=== PATIENT | male | born 1980 | race Caucasian/White ===

== ENCOUNTER 2023-06-20 18:10 | Emergency (ER) | payer BC ==
[2023-06-20 18:36] VITALS: TEMP 99.6
--- NOTE | 2023-06-20 20:07 | ERPHSYRPT ---
- History of Present Illness Time Seen by Provider: 06/20/23 19:16 Source: patient Exam Limitations: no limitations Patient Subjective Stated Complaint: Pt has been sick for 1 week with a sore throat, cough, drainage, coughing up phlem, headache, eye pain, fever, pt has we nt to [facility] in [place] on Friday and was given Amoxil and and had negative strep test and then the pt went to [facility] here at the hospital and was neg for strep/flu/covid and RSV Triage Nursing Assessment: Pt brought to the ER by his sister, hypertensive, rat es overall pain as 8/10, throat is swollen and red with no visible pustules, pt took tylenol prior to coming to the ER and stated that his temp was 102.7 and it is now 99.6, pulses normal, skin n/w/d, states that he has pain behind his eyes, headache, sputum is green in color per pt, pt was placed on antibiotics but they don't seem to be helping Physician History: Pt states for the past week he has had fatigue, chills, fever starting at 99.7 degrees up to 102.7 degrees today, sore throat for the past 5 days, frontal headache for the past 3 days and cough productive of green phlegm for the past 3 days. Allergies/Adverse Reactions: No Known Drug Allergies Allergy (Verified 06/20/23 18:37) Home Medications: Cholestyramine (with Sugar) [Cholestyramine Packet] 4 gm PO DAILY 06/20/23 [History] Hx Tetanus, Diphtheria Vaccination/Date Given: Yes Hx Influenza Vaccination/Date Given: No Hx Pneumococcal Vaccination/Date Given: No Travel Risk - International Travel Have you traveled outside of the country in past 3 weeks: No - Coronavirus Screening Are you exhibiting any of the following symptoms?: No Close contact with a COVID-19 positive Pt in past 14-21 Days: No - Vaccine Status Have you recieved a Covid-19 vaccination: Yes Medical Records Director: Unknown - Vaccination Dates Date of 2cond Vaccination (if applicable): didn't get Dates if Unknown: 2020 - Review of Systems Constitutional: Fever, Chills, Fatigue Ears, Nose, & Throat: Throat Pain Respiratory: Cough Abdominal/Gastrointestinal: No Abdominal Pain Neurological: Headache - Past Medical History Pertinent Past Medical History: Yes Neurological History: No Pertinent History ENT History: No Pertinent History Cardiac History: Hypertension, Other Respiratory History: No Pertinent History Endocrine Medical History: No Pertinent History Musculoskeletal History: No Pertinent History GI Medical History: No Pertinent History History: No Pertinent History Psycho-Social History: No Pertinent History 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 - Past Surgical History Past Surgical History: Yes Neuro Surgical History: No Pertinent History Cardiac: Other Respiratory: No Pertinent History Gastrointestinal: Cholecystectomy Genitourinary: No Pertinent History Musculoskeletal: No Pertinent History Male Surgical History: No Pertinent History Other Surgical History: lower back pain - Social History Smoking Status: Never smoker Exposure to second hand smoke: Yes Drug Use: none Patient Lives Alone: No - Nursing Vital Signs Nursing Vital Signs: Initial Vital Signs Temperature 99.6 F 06/20/23 18:22 Pulse Rate 99 H 06/20/23 18:22 Blood Pressure 152/74 06/20/23 18:22 O2 Sat by Pulse Oximetry 97 06/20/23 18:22 Pain Scale Pain Intensity 8 - Physical Exam General Appearance: alert Eye Exam: PERRL/EOMI Ears, Nose, Throat Exam: TM abnormal (R) (mildly erythematous), TM abnormal (L) (mildly erythematous), pharyngeal erythema Neck Exam: lymphadenopathy (anterior cervical chain with mild tenderness) Respiratory Exam: normal breath sounds Cardiovascular Exam: normal heart sounds Gastrointestinal/Abdomen Exam: normal bowel sounds Extremity Exam: No pedal edema Neurologic Exam: alert, cooperative Skin Exam: warm, dry SpO2 Interpretation: normal SpO2: 97 O2 Delivery: Room Air - Course Nursing assessment & vital signs reviewed: Yes - Radiology Exams Chest X-ray Interpretation: Teleradiologist Report ( A suggestion of slightly prominent bernie. No major collapse or consolidation. No active lung lesioin noted at the present study. ) - CT Exams Soft Tissue Neck CT Interpretation: Tele-radiologist Report (An enlarged left jugulo digastric node could be infective/inflammatory. Recommend ultrasound/CT followup. Multiple sub centimetric submandibular, jugular and posterior cervical nodes.) Ordered Tests: Active Orders 24 hr Category Date Time Status IV Insertion STAT Care 06/20/23 20:09 Active CHEST 2 VIEWS (PA AND LAT) Stat Exams 06/20/23 20:10 Completed NECK WITH CONTRAST [CT] Stat Exams 06/20/23 20:08 Completed CBC W DIFF Stat Lab 06/20/23 20:30 Completed CMP Stat Lab 06/20/23 20:30 Completed MONO SCREEN Stat Lab 06/20/23 20:30 Completed UA W/RFX UR CULTURE Stat Lab 06/20/23 20:09 Ordered Medication Summary Generic Name Dose Route Start Last Admin Trade Name Jim PRN Reason Stop Dose Admin Sodium Chloride 1,000 mls @ 100 mls/hr 06/20/23 20:45 06/20/23 20:50 Sodium Chloride 0.9% 1000 Ml IV 07/20/23 20:44 100 mls/hr .Q10H GANGA Administration Discontinued Medications Generic Name Dose Route Start Last Admin Trade Name Jim PRN Reason Stop Dose Admin Sodium Chloride 100 mls @ 100 mls/hr 06/20/23 20:09 06/20/23 20:44 Sodium Chloride 0.9% IV 06/20/23 21:08 Not Given .Q1H ONE Ketorolac Tromethamine 30 mg 06/20/23 20:11 06/20/23 20:52 Ketorolac Tromethamine 30 Mg/Ml Inj IV 06/20/23 20:12 30 mg STAT ONE Administration Ketorolac Tromethamine Confirm 06/20/23 20:45 Ketorolac Tromethamine 30 Mg/Ml Inj Administered 06/20/23 20:46 Dose 30 mg .ROUTE .STK-MED ONE Lab/Rad Data: Laboratory Result Diagrams 06/20/23 20:30 06/20/23 20:30 Laboratory Results 06/20/23 06/20/23 06/20/23 Range/Units 20:30 20:30 20:30 WBC (4.0-10.5) x10^3/uL RBC (4.1-5.6) x10^6/uL Hgb (12.5-18.0) g/dL Hct (42-50) % MCV (78-100) fL MCH (26-32) pg MCHC (32-36) g/dL RDW (11.5-14.0) % Plt Count (150-450) x10^3/uL MPV (7.5-11.0) fL Gran % (36.0-66.0) % Immature Gran % (Auto) (0.00-0.4) % Nucleat RBC Rel Count (0.00-0.1) % Eos # (Auto) (0-0.5) x10^3/uL Immature Gran # (Auto) (0.00-0.03) x10^3u/L Absolute Lymphs (auto) (1.0-4.6) x10^3/uL Absolute Monos (auto) (0.0-1.3) x10^3/uL Absolute Nucleated RBC (0.00-0.01) x10^3u/L Lymphocytes % (24.0-44.0) % Monocytes % (0.0-12.0) % Eosinophils % (0.00-5.0) % Basophils % (0.0-0.4) % Absolute Granulocytes (1.4-6.9) x10^3/uL Basophils # (0-0.4) x10^3/uL Sodium (137-145) mmol/L Potassium (3.5-5.1) mmol/L Chloride (98-107) mmol/L Carbon Dioxide (22-30) mmol/L Anion Gap (5-15) MEQ/L BUN (9-20) mg/dL Creatinine (0.66-1.25) mg/dL Estimated GFR ML/MIN Glucose (74-106) mg/dL Calcium (8.4-10.2) mg/dL Total Bilirubin (0.2-1.3) mg/dL AST (17-59) U/L ALT (0-50) U/L Alkaline Phosphatase (38-126) U/L Serum Total Protein (6.3-8.2) g/dL Albumin (3.5-5.0) g/dL Monoscreen NEGATIVE (NEGATIVE) Influenza Type A Ag NEGATIVE (NEGATIVE) Influenza Type B Ag NEGATIVE (NEGATIVE) RSV (PCR) POSITIVE (NEGATIVE) SARS-CoV-2 (PCR) NEGATIVE (NEGATIVE) Group A Strep Antibody NOT DETECTED (NEGATIVE) 06/20/23 06/20/23 Range/Units 20:30 20:30 WBC 5.1 (4.0-10.5) x10^3/uL RBC 5.05 (4.1-5.6) x10^6/uL Hgb 14.7 (12.5-18.0) g/dL Hct 45.7 (42-50) % MCV 90.5 (78-100) fL MCH 29.1 (26-32) pg MCHC 32.2 (32-36) g/dL RDW 12.8 (11.5-14.0) % Plt Count 133 L (150-450) x10^3/uL MPV 10.4 (7.5-11.0) fL Gran % 71.2 H (36.0-66.0) % Immature Gran % (Auto) 0.2 (0.00-0.4) % Nucleat RBC Rel Count 0.0 (0.00-0.1) % Eos # (Auto) 0.04 (0-0.5) x10^3/uL Immature Gran # (Auto) 0.01 (0.00-0.03) x10^3u/L Absolute Lymphs (auto) 0.99 L (1.0-4.6) x10^3/uL Absolute Monos (auto) 0.42 (0.0-1.3) x10^3/uL Absolute Nucleated RBC 0.00 (0.00-0.01) x10^3u/L Lymphocytes % 19.4 L (24.0-44.0) % Monocytes % 8.2 (0.0-12.0) % Eosinophils % 0.8 (0.00-5.0) % Basophils % 0.2 (0.0-0.4) % Absolute Granulocytes 3.64 (1.4-6.9) x10^3/uL Basophils # 0.01 (0-0.4) x10^3/uL Sodium 139 (137-145) mmol/L Potassium 3.9 (3.5-5.1) mmol/L Chloride 101 (98-107) mmol/L Carbon Dioxide 27 (22-30) mmol/L Anion Gap 15.4 H (5-15) MEQ/L BUN 20 (9-20) mg/dL Creatinine 1.17 (0.66-1.25) mg/dL Estimated GFR 79.8 ML/MIN Glucose 109 H (74-106) mg/dL Calcium 9.8 (8.4-10.2) mg/dL Total Bilirubin 0.60 (0.2-1.3) mg/dL AST 31 (17-59) U/L ALT 23 (0-50) U/L Alkaline Phosphatase 54 (38-126) U/L Serum Total Protein 8.0 (6.3-8.2) g/dL Albumin 4.6 (3.5-5.0) g/dL Monoscreen (NEGATIVE) Influenza Type A Ag (NEGATIVE) Influenza Type B Ag (NEGATIVE) RSV (PCR) (NEGATIVE) SARS-CoV-2 (PCR) (NEGATIVE) Group A Strep Antibody (NEGATIVE) - Progress Progress: unchanged Air Movement: fair Blood Culture(s) Obtained: No Antibiotics given: No Counseled pt/family regarding: lab results, diagnosis, rad results Medical Desision Making - Diagnostic Testing Diagnostic test were ordered, analyzed, and reviewed by me: Yes Radiological Interpretation: Teleradiologist Report - Departure Departure Disposition: Home Clinical Impression: RSV infection, Bilateral otitis media, Fever Condition: Stable Critical Care Time: No Referrals: BHARGAV LANCASTER [Primary Care Provider] - Follow up/PCP as directed Instructions: Sore Throat, Adult (DC), Respiratory Syncytial Virus, Adult (DC) Additional Instructions: Follow up with private doctor tomorrow. Take tylenol &/or ibuprofen as needed for pain/fever. Continue augmentin for ear infections.
[2023-06-20] MEDS ORDERED: Sodium Chloride 0.9% 100 ML IV ONE (20:09)
[2023-06-20] MEDS ORDERED: TORAdol 30 mg Injection IV ONE (20:11)
[2023-06-20 20:35] LABS: Absolute Neutrophil Ct (ANC) 3.64 x10^3/uL (1.4-6.9); BASOPHIL % 0.2 % (0.0-0.4); Basophil (Absolute #) 0.01 x10^3/uL (0-0.4); Eosinophil % 0.8 % (0.00-5.0); Eosinophil (Absolute #) 0.04 x10^3/uL (0-0.5); Hematocrit 45.7 % (42-50); Hemoglobin 14.7 g/dL (12.5-18.0); IMMATURE GRAN # 0.01 x10^3u/L (0.00-0.03); IMMATURE GRAN % 0.2 % (0.00-0.4); Lymphocyte (Absolute #) 0.99 x10^3/uL (1.0-4.6); Lymphocytes % 19.4 % (24.0-44.0); Mean Cell Volume 90.5 fL (78-100); Mean Corpuscular Hemoglobin 29.1 pg (26-32); Mean Corpuscular Hgb Concent. 32.2 g/dL (32-36); Mean Platelet Volume 10.4 fL (7.5-11.0); Monocyte (Absolute #) 0.42 x10^3/uL (0.0-1.3); Monocytes % 8.2 % (0.0-12.0); Neutrophil % 71.2 % (36.0-66.0); Platelet Count 133 x10^3/uL (150-450); Red Blood Count 5.05 x10^6/uL (4.1-5.6); Red Cell Distribution Width 12.8 % (11.5-14.0); White Blood Count 5.1 x10^3/uL (4.0-10.5)
[2023-06-20 20:45] LABS: ALBUMIN 4.6 g/dL (3.5-5.0); ANION GAP 15.4 MEQ/L (5-15); BILIRUBIN,TOTAL 0.6 mg/dL (0.2-1.3); Calcium 9.8 mg/dL (8.4-10.2); Creatinine 1 1.17 mg/dL (0.66-1.25); EST GLOMERULAR FILTRATION RATE 79.8 ML/MIN; Potassium 3.9 mmol/L (3.5-5.1)
[2023-06-20] MEDS ORDERED: TORAdol 30 mg Injection ONE (20:45)
[2023-06-20] MEDS ORDERED: Sodium Chloride 0.9% 1000 ML 1,000 ML ONE (20:45)
[2023-06-20] MEDS ORDERED: Sodium Chloride 0.9% 1000 ML 1,000 ML IV SCH (20:45)
[2023-06-20 21:09] LABS: INFLUENZA A NEGATIVE (NEGATIVE); INFLUENZA B NEGATIVE (NEGATIVE); SARS-CoV-2 Xpert Express NEGATIVE (NEGATIVE)
[2023-06-20 21:12] LABS: RESPIRATORY SYNCTIAL VIRUS POSITIVE (NEGATIVE)
--- NOTE | 2023-06-20 21:56 | XRAY ---
CLINICAL HISTORY:pain COMPARISON:None. TECHNIQUE:A CT scan of the neck was performed without administration of intravenous contrast. Sagittal and coronal reconstructions were obtained. FINDINGS: An enlarged left jugulo digastric node noted, measuring 13 mm in short axis diameter. Multiple bilateral subcentimetric submandibular, upper mid and lower jugular, and posterior cervical nodes noted. Normal CT appearance of the supra-and infra-hyoid deep neck spaces. Normal CT appearance of the larynx, namely the supraglottic, glottic, and infra, glottic spaces. Unremarkable nasal and Alan pharyngeal mucosal spaces. Normal CT appearance of the sublingual, submandibular, and parotid salivary glands. The base of the tongue, the uvula, the epiglottis, the vocal cords, the upper trachea, and the upper esophagus are unremarkable. The thyroid gland shows no definite abnormality. The visualized structures of the posterior fossa show no definite abnormality. Left-sided nasal septal deviation with bilateral maxillary and ethmoidal sinusitis noted. Aurelia bullosa in right middle turbinate. IMPRESSION: An enlarged left jugulo digastric node could be infective/inflammatory. Recommended ultrasound/CT follow-up. Multiple sub centimetric submandibular, jugular, and posterior cervical nodes. Electronically Signed by: Susan Chicas MD. (06/20/2023 21:52:32 EST)
--- NOTE | 2023-06-20 21:58 | XRAY ---
CLINICAL HISTORY:cough/fever COMPARISON:None. TECHNIQUE:X-ray of the chest, frontal and lateral views FINDINGS: The suggestion of slightly prominent bernie. A radiographic examination of the chest demonstrates clear lungs. Normal configuration of the mediastinum. The cardiac size is normal. The bony thorax is unremarkable. The costophrenic and cardiophrenic angles are clear. IMPRESSION: 1. A suggestion of slightly prominent bernie. 2. No major collapse or consolidation. 3. No active lung lesion noted at the present study. 4. Clinical correlation is suggested. Electronically Signed by: Susan Chicas MD. (06/20/2023 21:54:53 EST)
[2023-06-20 22:16] VITALS: BP 101/65; PULSE 75; RESP 16
[2023-06-20 22:20] VITALS: O2SAT 97
== END 2023-06-20 22:41 | disposition home or self-care (01) ==
LOC: ED 18:10
DX: H66.93 Otitis media, unspecified, bilateral (principal); B97.4 Respiratory syncytial virus as the cause of diseases classified elsewhere; R50.9 Fever, unspecified; J02.9 Acute pharyngitis, unspecified; R51.9 Headache, unspecified; R05.1 Acute cough; I10 Essential (primary) hypertension; Z79.899 Other long term (current) drug therapy
CPT/HCPCS: 0241U; 36000; 36415; 70491; 71046; 80053; 85025; 86308; 87651; 96374; 99284; J1885

== ENCOUNTER 2023-10-20 10:22 | Emergency (ER) | payer BC ==
[2023-10-20 11:00] VITALS: TEMP 97.3
--- NOTE | 2023-10-20 11:15 | ERPHSYRPT ---
- History of Present Illness Time Seen by Provider: 10/20/23 10:25 Source: patient Exam Limitations: no limitations Patient Subjective Stated Complaint: "I started having abdominal pains last night around midnight and I couldn't go back to sleep. I feel like I have nausea." Triage Nursing Assessment: Pt presents to ER with complaints of right lower abdominal pains since last night around midnight. Has complaints of nausea, denies vomiting or diarrhea. Pt rates 7/10 scale. Abdomen is soft but tender. Bowel sounds are hyperactive throughout. Respirations are easy and lung sounds are clear. Denies difficulty urinating. Pt skin is pink, warm, and dry. Physician History: Patient is here with right upper, right lower abdominal pain. States that it started last night into this morning. States he has been taking less p.o. today. No falls or trauma. Patient has a history of a cholecystectomy. Patient has no fever here. States has had decrease oral intake secondary to nausea. He has not tried to make it better or worse. No other systemic signs of illness. No chest pain, shortness of breath, headache. Same number of urinations and defecations. The patient has no signs of altered mental status, nuchal rigidity, signs of meningitis. The patient is up-to-date on all vaccinations. Allergies/Adverse Reactions: No Known Drug Allergies Allergy (Verified 10/20/23 11:00) Home Medications: Cholestyramine (with Sugar) [Cholestyramine Packet] 4 gm PO DAILY 06/20/23 [History] Hx Tetanus, Diphtheria Vaccination/Date Given: Yes Hx Influenza Vaccination/Date Given: No Hx Pneumococcal Vaccination/Date Given: No Immunizations Up to Date: No Travel Risk - International Travel Have you traveled outside of the country in past 3 weeks: No - Emerging Infectious Disease Are you exhibiting symptoms associated with any current EIDs: No - Past Medical History Pertinent Past Medical History: Yes Neurological History: No Pertinent History ENT History: No Pertinent History Cardiac History: No Pertinent History Respiratory History: No Pertinent History Endocrine Medical History: No Pertinent History Musculoskeletal History: No Pertinent History GI Medical History: No Pertinent History History: No Pertinent History Psycho-Social History: No Pertinent History 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 - Past Surgical History Past Surgical History: Yes Neuro Surgical History: No Pertinent History Cardiac: Other Respiratory: No Pertinent History Gastrointestinal: Cholecystectomy Genitourinary: No Pertinent History Musculoskeletal: No Pertinent History Male Surgical History: No Pertinent History Other Surgical History: lower back pain - Social History Smoking Status: Never smoker Exposure to second hand smoke: No Drug Use: none Patient Lives Alone: No - Nursing Vital Signs Nursing Vital Signs: Initial Vital Signs Temperature 97.3 F 10/20/23 10:53 Pulse Rate 57 L 10/20/23 10:53 Respiratory Rate 16 10/20/23 10:53 Blood Pressure 126/82 10/20/23 10:53 O2 Sat by Pulse Oximetry 96 10/20/23 10:53 Pain Scale Pain Intensity 2 - Physical Exam SpO2: 96 Comments: 10/20/23 11:14 Review of Systems Constitutional: Negative for fever. HENT: Negative for congestion. Respiratory: Negative for shortness of breath. Cardiovascular: Negative for chest pain. Gastrointestinal: Negative for abdominal pain. Genitourinary: Negative for dysuria. Musculoskeletal: Negative for back pain. Skin: Negative for rash. Neurological: Negative for headaches. Psychiatric/Behavioral: Negative for behavioral problems. All other systems reviewed and are negative. Physical Exam Vitals signs and nursing note reviewed. Constitutional: Appearance: Patient is well-developed. HENT: Head: Normocephalic and atraumatic. Eyes: Conjunctiva/sclera: Conjunctivae normal. Neck: Musculoskeletal: Normal range of motion. Trachea: No tracheal deviation. Cardiovascular: Rate and Rhythm: Normal rate. Pulmonary: Effort: Pulmonary effort is normal. No respiratory distress. Abdominal: Palpations: Abdomen is soft. Right upper quadrant/epigastric tenderness to palpation without rebound or guarding. Musculoskeletal: General: No deformity. Skin: General: Skin is warm and dry. Neurological/ Psychiatric: Mental Status: Mental status, behavior, interaction with environment is appropriate for patient's age and condition - Course Nursing assessment & vital signs reviewed: Yes Ordered Tests: Active Orders 24 hr Category Date Time Status EKG-ER Only STAT Care 10/20/23 11:01 Completed IV Insertion STAT Care 10/20/23 11:01 Completed ABDOMEN AND PELVIS W CONTRAST [CT] Stat Exams 10/20/23 11:08 Completed CHEST 1 VIEW (PORTABLE) Stat Exams 10/20/23 11:01 Completed CBC W DIFF Stat Lab 10/20/23 11:00 Completed CMP Stat Lab 10/20/23 11:00 Completed LIPASE Stat Lab 10/20/23 11:00 Completed TROPONIN Q4H Lab 10/20/23 11:00 Completed TROPONIN Q4H Lab 10/20/23 15:15 Ordered TROPONIN Q4H Lab 10/20/23 19:15 Ordered UA W/RFX UR CULTURE Stat Lab 10/20/23 11:20 Completed Medication Summary Discontinued Medications Generic Name Dose Route Start Last Admin Trade Name Jim PRN Reason Stop Dose Admin Dexamethasone Sodium Phosphate 10 mg 10/20/23 11:03 10/20/23 11:26 Dexamethasone Sod Phosphate 10 Mg/Ml IV 10/20/23 11:04 10 mg STAT ONE Administration Dexamethasone Sodium Phosphate Confirm 10/20/23 11:22 Dexamethasone Sod Phosphate 10 Mg/Ml Administered 10/20/23 11:23 Dose 10 mg .ROUTE .STK-MED ONE Diphenhydramine HCl 25 mg 10/20/23 11:01 10/20/23 11:25 Diphenhydramine Hcl 50 Mg/Ml Vial IV 10/20/23 11:02 25 mg STAT ONE Administration Diphenhydramine HCl Confirm 10/20/23 11:22 Diphenhydramine Hcl 50 Mg/Ml Vial Administered 10/20/23 11:23 Dose 50 mg .ROUTE .STK-MED ONE Droperidol 1.25 mg 10/20/23 11:01 10/20/23 11:29 Droperidol 5 Mg/2 Ml Vial IV 10/20/23 11:02 1.25 mg STAT ONE Administration Droperidol Confirm 10/20/23 11:22 Droperidol 5 Mg/2 Ml Vial Administered 10/20/23 11:23 Dose 5 mg .ROUTE .STK-MED ONE Sodium Chloride 1,000 mls @ 999 mls/hr 10/20/23 11:01 10/20/23 12:25 Sodium Chloride 0.9% 1000 Ml IV 10/20/23 12:01 Infused .Q1H1M STA Infusion Sodium Chloride Confirm 10/20/23 11:22 Sodium Chloride 0.9% 1000 Ml Administered 10/20/23 11:23 Dose 1,000 mls @ ud .ROUTE .STK-MED ONE Ketorolac Tromethamine 30 mg 10/20/23 11:01 10/20/23 11:28 Ketorolac Tromethamine 30 Mg/Ml Inj IV 10/20/23 11:02 30 mg STAT ONE Administration Ketorolac Tromethamine Confirm 10/20/23 11:22 Ketorolac Tromethamine 30 Mg/Ml Inj Administered 10/20/23 11:23 Dose 30 mg .ROUTE .STK-MED ONE Lab/Rad Data: Laboratory Result Diagrams 10/20/23 11:00 10/20/23 11:00 Laboratory Results 10/20/23 10/20/23 10/20/23 Range/Units 11:20 11:00 11:00 WBC (4.0-10.5) x10^3/uL RBC (4.1-5.6) x10^6/uL Hgb (12.5-18.0) g/dL Hct (42-50) % MCV (78-100) fL MCH (26-32) pg MCHC (32-36) g/dL RDW (11.5-14.0) % Plt Count (150-450) x10^3/uL MPV (7.5-11.0) fL Gran % (36.0-66.0) % Immature Gran % (Auto) (0.00-0.4) % Nucleat RBC Rel Count (0.00-0.1) % Eos # (Auto) (0-0.5) x10^3/uL Immature Gran # (Auto) (0.00-0.03) x10^3u/L Absolute Lymphs (auto) (1.0-4.6) x10^3/uL Absolute Monos (auto) (0.0-1.3) x10^3/uL Absolute Nucleated RBC (0.00-0.01) x10^3u/L Lymphocytes % (24.0-44.0) % Monocytes % (0.0-12.0) % Eosinophils % (0.00-5.0) % Basophils % (0.0-0.4) % Absolute Granulocytes (1.4-6.9) x10^3/uL Basophils # (0-0.4) x10^3/uL Sodium 139 (135-145) mmol/L Potassium 4.2 (3.5-5.1) mmol/L Chloride 106 (98-107) mmol/L Carbon Dioxide 26 (22-30) mmol/L Anion Gap 11.7 (5-15) MEQ/L BUN 20 (9-20) mg/dL Creatinine 1.06 (0.66-1.25) mg/dL Estimated GFR 89.9 ML/MIN Glucose 99 (74-106) mg/dL Calcium 9.2 (8.4-10.2) mg/dL Total Bilirubin 0.80 (0.2-1.3) mg/dL AST 23 (17-59) U/L ALT 24 (0-50) U/L Alkaline Phosphatase 58 (38-126) U/L Troponin I < 0.012 (0.000-0.033) ng/mL Serum Total Protein 7.7 (6.3-8.2) g/dL Albumin 4.4 (3.5-5.0) g/dL Lipase 54 (23-300) U/L Urine Color Yellow (Yellow) Urine Appearance Clear (Clear) Urine pH 5.0 (4.6-8.0) Ur Specific [place] 1.025 (1.005-1.030) Urine Protein Negative (Negative) Urine Glucose (UA) Negative (Negative) mg/dL Urine Ketones Negative (Negative) Urine Blood Negative (Negative) Urine Nitrite Negative (Negative) Urine Bilirubin Negative (Negative) Urine Urobilinogen 0.2 (0.2) mg/dL Ur Leukocyte Esterase Negative (Negative) U Hyaline Cast (Auto) NONE SEEN (0-2) /LPF Urine Microscopic RBC 0-2 (0-5) /HPF Urine Microscopic WBC 0-2 (0-5) /HPF Ur Epithelial Cells None Seen (None Seen) /HPF Urine Bacteria None Seen (None Seen) /HPF Urine Culture Reflexed NO (NO) 10/20/23 Range/Units 11:00 WBC 6.9 (4.0-10.5) x10^3/uL RBC 4.75 (4.1-5.6) x10^6/uL Hgb 14.3 (12.5-18.0) g/dL Hct 42.9 (42-50) % MCV 90.3 (78-100) fL MCH 30.1 (26-32) pg MCHC 33.3 (32-36) g/dL RDW 13.8 (11.5-14.0) % Plt Count 182 (150-450) x10^3/uL MPV 10.0 (7.5-11.0) fL Gran % 57.1 (36.0-66.0) % Immature Gran % (Auto) 0.3 (0.00-0.4) % Nucleat RBC Rel Count 0.0 (0.00-0.1) % Eos # (Auto) 0.29 (0-0.5) x10^3/uL Immature Gran # (Auto) 0.02 (0.00-0.03) x10^3u/L Absolute Lymphs (auto) 2.12 (1.0-4.6) x10^3/uL Absolute Monos (auto) 0.49 (0.0-1.3) x10^3/uL Absolute Nucleated RBC 0.00 (0.00-0.01) x10^3u/L Lymphocytes % 30.6 (24.0-44.0) % Monocytes % 7.1 (0.0-12.0) % Eosinophils % 4.2 (0.00-5.0) % Basophils % 0.7 (0.0-0.4) % Absolute Granulocytes 3.96 (1.4-6.9) x10^3/uL Basophils # 0.05 (0-0.4) x10^3/uL Sodium (135-145) mmol/L Potassium (3.5-5.1) mmol/L Chloride (98-107) mmol/L Carbon Dioxide (22-30) mmol/L Anion Gap (5-15) MEQ/L BUN (9-20) mg/dL Creatinine (0.66-1.25) mg/dL Estimated GFR ML/MIN Glucose (74-106) mg/dL Calcium (8.4-10.2) mg/dL Total Bilirubin (0.2-1.3) mg/dL AST (17-59) U/L ALT (0-50) U/L Alkaline Phosphatase (38-126) U/L Troponin I (0.000-0.033) ng/mL Serum Total Protein (6.3-8.2) g/dL Albumin (3.5-5.0) g/dL Lipase (23-300) U/L Urine Color (Yellow) Urine Appearance (Clear) Urine pH (4.6-8.0) Ur Specific [place] (1.005-1.030) Urine Protein (Negative) Urine Glucose (UA) (Negative) mg/dL Urine Ketones (Negative) Urine Blood (Negative) Urine Nitrite (Negative) Urine Bilirubin (Negative) Urine Urobilinogen (0.2) mg/dL Ur Leukocyte Esterase (Negative) U Hyaline Cast (Auto) (0-2) /LPF Urine Microscopic RBC (0-5) /HPF Urine Microscopic WBC (0-5) /HPF Ur Epithelial Cells (None Seen) /HPF Urine Bacteria (None Seen) /HPF Urine Culture Reflexed (NO) - Progress Progress: improved Progress Note: 10/20/23 11:15 Differential diagnosis includes kidney stone, compression fracture, infection, UTI, triple AAA - basic labs including: CBC, lipase, CMP, UA - insert IV for symptom management - consider imaging: CT ab/pelvis or U/S Reevaluation Patient feels improved with medication. 10/20/23 13:19 CT scan shows no abnormalities. No signs of acute choledocholithiasis, gallbladder disease, kidney stones, pyelonephritis. UA shows no UTI, signs of infection. Patient feeling improved at this point in time with medication. Plan for discharge home at this point Counseled pt/family regarding: lab results, diagnosis, need for follow-up, rad results - Departure Departure Disposition: Home Clinical Impression: Abdominal pain Condition: Stable Critical Care Time: No Referrals: KRISTYN ROMO [CONSULTING PHYSICIAN] - Follow up/PCP as directed Instructions: Abdominal pain Prescriptions: Ondansetron ODT 4 MG [Zofran Odt 4 mg] 4 mg PO Q6H PRN PRN #10 tablet PRN Reason: Vomiting
[2023-10-20] MEDS ORDERED: Sodium Chloride 0.9% 1000 ML 1,000 ML ONE (11:22)
[2023-10-20] MEDS ORDERED: DECADRON 10MG INJ. ONE (11:22)
[2023-10-20] MEDS ORDERED: BENADRYL 50 MG/ML ONE (11:22)
[2023-10-20] MEDS ORDERED: TORAdol 30 mg Injection ONE (11:22)
[2023-10-20] MEDS: Sodium Chloride 0.9% 1000 ML 1,000 ML IV STA (11:24)
[2023-10-20] MEDS: BENADRYL 50 MG/ML IV ONE (11:25)
[2023-10-20] MEDS: DECADRON 10MG INJ. IV ONE (11:26)
[2023-10-20] MEDS: TORAdol 30 mg Injection IV ONE (11:28)
--- NOTE | 2023-10-20 11:33 | XRAY ---
Indication: Epigastric pain. Comparison: June 20, 2023 Portable apical lordotic chest again demonstrates normal heart and lungs. Bony thorax intact. No new/acute findings.
[2023-10-20 11:35] LABS: Absolute Neutrophil Ct (ANC) 3.96 x10^3/uL (1.4-6.9); BASOPHIL % 0.7 % (0.0-0.4); Basophil (Absolute #) 0.05 x10^3/uL (0-0.4); Eosinophil % 4.2 % (0.00-5.0); Eosinophil (Absolute #) 0.29 x10^3/uL (0-0.5); Hematocrit 42.9 % (42-50); Hemoglobin 14.3 g/dL (12.5-18.0); IMMATURE GRAN # 0.02 x10^3u/L (0.00-0.03); IMMATURE GRAN % 0.3 % (0.00-0.4); Lymphocyte (Absolute #) 2.12 x10^3/uL (1.0-4.6); Lymphocytes % 30.6 % (24.0-44.0); Mean Cell Volume 90.3 fL (78-100); Mean Corpuscular Hemoglobin 30.1 pg (26-32); Mean Corpuscular Hgb Concent. 33.3 g/dL (32-36); Monocyte (Absolute #) 0.49 x10^3/uL (0.0-1.3); Monocytes % 7.1 % (0.0-12.0); Neutrophil % 57.1 % (36.0-66.0); Platelet Count 182 x10^3/uL (150-450); Red Blood Count 4.75 x10^6/uL (4.1-5.6); Red Cell Distribution Width 13.8 % (11.5-14.0); White Blood Count 6.9 x10^3/uL (4.0-10.5)
[2023-10-20 11:39] LABS: Appearance Clear (Clear); Bacteria None Seen /HPF (None Seen); Bilirubin Negative (Negative); Blood Negative (Negative); Epithelial Cells None Seen /HPF (None Seen); Glucose, Urine Negative (Negative); Hyaline Casts NONE SEEN /LPF (0-2); Ketones Negative (Negative); Leukocyte Esterase Negative (Negative); Nitrite Negative (Negative); Protein,Urine Dip Negative (Negative); RBC 0-2 /HPF (0-5); Specific Gravity 1.025 (1.005-1.030); Urobilinogen 0.2 mg/dL (0.2); WBC 0-2 /HPF (0-5)
[2023-10-20 11:48] LABS: ALBUMIN 4.4 g/dL (3.5-5.0); ANION GAP 11.7 MEQ/L (5-15); BILIRUBIN,TOTAL 0.8 mg/dL (0.2-1.3); Calcium 9.2 mg/dL (8.4-10.2); Creatinine 1 1.06 mg/dL (0.66-1.25); EST GLOMERULAR FILTRATION RATE 89.9 ML/MIN; Potassium 4.2 mmol/L (3.5-5.1); Total Protein 7.7 g/dL (6.3-8.2)
[2023-10-20 11:54] LABS: ADD URINE CULTURE? NO (NO)
--- NOTE | 2023-10-20 12:11 | XRAY ---
Indication: Epigastric pain. Multiple contiguous axial images obtained through the abdomen and pelvis using 80 cc Isovue 370 contrast. Comparison: June 24, 2013 Lung bases demonstrates bilateral dependent atelectasis. No infiltrate or effusion. Heart not enlarged. Noncontrasted stomach and bowel loops appear nonobstructed again with normal appendix. There is now mild diffuse scattered colonic fecal debris throughout. Interval cholecystectomy. No free fluid/air. Remaining liver, pancreas, spleen, adrenal glands, kidneys, ureters, bladder, and aorta are normal in CT appearance and attenuation. Osseous structures intact. No ventral or inguinal hernias. Impression: 1. New mild diffuse fecal stasis. 2. Remaining CT abdomen/pelvis with contrast exam is normal.
[2023-10-20 12:45] VITALS: BP 108/64; PULSE 52; RESP 16
[2023-10-20 13:24] VITALS: O2SAT 96
== END 2023-10-20 12:50 | disposition home or self-care (01) ==
LOC: ED 10:22
DX: R10.31 Right lower quadrant pain (principal); R10.11 Right upper quadrant pain; Z79.899 Other long term (current) drug therapy
CPT/HCPCS: 36000; 36415; 71045; 74177; 80053; 81001; 83690; 84484; 85025; 93005; 96374; 96375; 99284; J1100; J1200; J1885

== ENCOUNTER 2024-06-13 18:54 | Emergency (ER) | payer BC ==
[2024-06-13 18:59] VITALS: BP 157/92; PULSE 83; RESP 18; TEMP 98.1; O2SAT 96
--- NOTE | 2024-06-13 19:09 | ERPHSYRPT ---
- History of Present Illness Time Seen by Provider: 06/13/24 19:08 Source: patient Exam Limitations: no limitations Patient Subjective Stated Complaint: pt here for rash to left shoulder for a month now, but started draining today Triage Nursing Assessment: pt alert, walked in, resp easy, skin w/d/p. pt has dry skin to legs, left shoulder has dry skin that is open and draining, he co itching, Physician History: This is a 44-year-old white male patient who arrives by private vehicle and states that he has this rash/sore in the anterior aspect of his left shoulder this been present for over a month. It is very itchy and he did scratch it at times. He was not too concerned about it but today, this morning, it started draining a bit. He does have areas on his body that appear almost like a folliculitis but nothing similar to the area of skin of his left shoulder. He did state that in October 2023 he was bitten by a tick on the lower abdomen infraumbilically to the right of midline and there is been a lesion there that has not changed. Patient has not had fevers. He has had no nausea vomiting or diarrhea symptoms. He has no joint pain or aches. Timing/Duration: worse (Today) Quality: itchy, other (Drained a little today) Severity: mild Location: extremities (Patch of skin overlying the anterior left shoulder) Possible Causes: no cause identified Modifying Factors: Improves With: scratching Associated Symptoms: change in skin texture, hives Allergies/Adverse Reactions: No Known Drug Allergies Allergy (Verified 06/13/24 18:57) Hx Tetanus, Diphtheria Vaccination/Date Given: No Hx Influenza Vaccination/Date Given: No Hx Pneumococcal Vaccination/Date Given: No Immunizations Up to Date: Yes Travel Risk - International Travel Have you traveled outside of the country in past 3 weeks: No - Emerging Infectious Disease Are you exhibiting symptoms associated with any current EIDs: No - Review of Systems Constitutional: No Symptoms Eyes: No Symptoms Ears, Nose, & Throat: No Symptoms Respiratory: No Symptoms Cardiac: No Symptoms Abdominal/Gastrointestinal: No Symptoms Genitourinary Symptoms: No Symptoms Musculoskeletal: No Symptoms Skin: Skin Lesions (Patch of dried sandpaper like rash skin overlying left anterior shoulder with central area of mild, clear drainage) Neurological: No Symptoms Psychological: No Symptoms Endocrine: No Symptoms Hematologic/Lymphatic: No Symptoms Immunological/Allergic: No Symptoms All Other Systems: Reviewed and Negative - Past Medical History Pertinent Past Medical History: Yes Neurological History: No Pertinent History ENT History: No Pertinent History Cardiac History: No Pertinent History Respiratory History: No Pertinent History Endocrine Medical History: No Pertinent History Musculoskeletal History: No Pertinent History GI Medical History: No Pertinent History History: No Pertinent History Psycho-Social History: No Pertinent History 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 - Past Surgical History Past Surgical History: Yes Neuro Surgical History: No Pertinent History Cardiac: Other Respiratory: No Pertinent History Gastrointestinal: Cholecystectomy Genitourinary: No Pertinent History Musculoskeletal: No Pertinent History Male Surgical History: No Pertinent History Other Surgical History: lower back pain - Social History Smoking Status: Never smoker Exposure to second hand smoke: No Drug Use: none Patient Lives Alone: No - Social Determinants of Health Will the patient participate in the screening: Declined to provide - Nursing Vital Signs Nursing Vital Signs: Initial Vital Signs Temperature 98.1 F 06/13/24 18:58 Pulse Rate 83 06/13/24 18:58 Respiratory Rate 18 06/13/24 18:58 Blood Pressure 157/92 06/13/24 18:58 O2 Sat by Pulse Oximetry 96 06/13/24 18:58 Pain Scale Pain Intensity 2 - Physical Exam General Appearance: no apparent distress, alert Eye Exam: PERRL/EOMI Ears, Nose, Throat Exam: normal ENT inspection, moist mucous membranes Neck Exam: normal inspection, non-tender, supple, full range of motion Respiratory Exam: airway intact, No chest tenderness, No respiratory distress Gastrointestinal/Abdomen Exam: No tenderness Rectal Exam: not done Back Exam: normal inspection, normal range of motion, No CVA tenderness, No vertebral tenderness Extremity Exam: normal inspection, normal range of motion, pelvis stable Neurologic Exam: alert, oriented x 3, cooperative, technical writing lead/mgr II-XII nml as tested, nml cerebellar function, nml station & gait, sensation nml Lymphatic Exam: No adenopathy SpO2 Interpretation: normal SpO2: 96 O2 Delivery: Room Air - Course Nursing assessment & vital signs reviewed: Yes Ordered Tests: Active Orders 24 hr Category Date Time Status CULTURE,WOUND Stat Lab 06/13/24 19:42 Ordered Medication Summary Discontinued Medications Generic Name Dose Route Start Last Admin Trade Name Freq PRN Reason Stop Dose Admin Prednisone 20 mg 06/13/24 19:41 Prednisone 20 Mg Tablet PO 06/13/24 19:42 STAT ONE Trimethoprim/Sulfamethoxazole 1 tab 06/13/24 19:41 Smz/Tmp Ds Tablet 1 Tablet PO 06/13/24 19:42 STAT ONE - Progress Progress: unchanged Progress Note: 06/13/24 19:57 My medical decision making of the assignment of low complexity to this patient's medical issue today is based on review of the patient's past medical history, review of the patient's medication list, reviewed patient drug allergy list, history present illness and physical findings on examination. The workup in this patient includes culture of the wound. Differential diagnosis includes is not limited to insect bite, MRSA lesion, folliculitis Counseled pt/family regarding: diagnosis, need for follow-up Medical Desision Making - Diagnostic Testing Diagnostic test were ordered, analyzed, and reviewed by me: No - Risk of complications The pt has a mod risk of morbidity or mortality based on: Need for prescription drug management - Departure Departure Disposition: Home Clinical Impression: Skin infection Condition: Stable Critical Care Time: No Referrals: BHARGAV LANCASTER [Primary Care Provider] - Follow up/PCP as directed Additional Instructions: Do not apply lotions ointments or creams. Scrub the area daily with soap and water. Cover this site after cleansing and drying with a nonstick gauze. Call your primary care provider tomorrow, 06/14/2024, to make arranges for follow-up appointment to be seen in the next 3 to 5 days. Discussed with your provider about the abdominal wall lesion that has been present for 7 months. Take your new medications and old medications as prescribed Prescriptions: Smz/Tmp Ds Tablet [Bactrim Ds Tablet] 1 udtab PO BID #14 tablet Prednisone 10 mg [Deltasone 10 mg] 10 mg PO TID #12 tablet
[2024-06-13] MEDS ORDERED: DELTASONE 20 MG ONE (19:57)
[2024-06-13] MEDS ORDERED: BACTRIM DS TABLET PO ONE (19:57)
[2024-06-13] MEDS: DELTASONE 20 MG PO ONE (19:58)
[2024-06-13] MEDS: BACTRIM DS TABLET PO ONE (19:58)
== END 2024-06-13 20:16 | disposition home or self-care (01) ==
LOC: ED 18:54
DX: L08.9 Local infection of the skin and subcutaneous tissue, unspecified (principal)
CPT/HCPCS: 87070; 87077; 87186; 99283; A9270-GY